=== PATIENT | male | born 1985 | race Caucasian/White ===

== ENCOUNTER 2022-02-11 15:04 | Emergency (ER) | payer BC ==
[2022-02-11 15:58] LABS: #Basophils 0.1 thou/uL (0.0-0.2); #Lymphocytes 2.1 thou/uL (1.20-3.40); #Monocytes 0.7 thou/uL (0.11-0.59); #Neutrophils 4.2 thou/uL (1.40-6.50); %Eosinophils 0.6 % (0.0-10.0); %Lymphocytes 29.9 % (21.0-51.0); %Monocytes 9.6 % (0.0-10.0); %Neutrophils 58.9 % (42.0-75.0); Hemoglobin 15.3 g/dL (14.0-18.0); Mean Corpuscular HGB CONC 31.5 g/dL (32.0-36.0); Mean Corpuscular Hemoglobin 28.5 pg (27.0-31.0); Mean Corpuscular Volume 90.5 fL (78.0-98.0); Mean Platelet Volume 8.1 fL (7.4-10.4); Platelet Count 299 thou/uL (130-400); Red Blood Cell (RBC) Count 5.37 mill/uL (4.70-6.10); White Blood Cell (WBC) Count 7.1 thou/uL (4.8-10.8)
[2022-02-11 16:12] LABS: ALT (SGPT) 22 U/L (8-55); AST (SGOT) 19 U/L (5-34); Albumin 4.7 g/dL (3.5-5.0); Alkaline Phosphatase 61 U/L (40-110); Anion Gap 16 mmol/L (10-20); BUN (Urea Nitrogen) 17 mg/dL (8.9-20.6); Bilirubin, Total 0.6 mg/dL (0.2-1.2); CK (CPK) 123 U/L (30-200); Calc. Creatinine Clearance 0 mL/min (70-130); Calcium 9.6 mg/dL (7.8-10.44); Carbon Dioxide 24 mmol/L (22-29); Chloride 106 mmol/L (98-107); Globulin 2.3 g/dL (2.4-3.5); Glucose 85 mg/dL (70-105); Sodium 142 mmol/L (136-145)
== END 2022-02-11 17:03 | disposition home or self-care (01) ==
LOC: NAV ERS 15:04
DX: R53.83 Other fatigue (principal); K21.9 Gastro-esophageal reflux disease without esophagitis; Z79.899 Other long term (current) drug therapy
CPT/HCPCS: 71046; 80053; 82550; 84443; 84484; 85025; 93005

== ENCOUNTER 2022-05-28 21:52 | Emergency (ER) | payer BC | END 2022-05-28 22:34 | disposition home or self-care (01) | LOC: NAV ERS 21:52 | DX: S10.93XA Contusion of unspecified part of neck, initial encounter (principal); X58.XXXA Exposure to other specified factors, initial encounter | CPT/HCPCS: 99283 ==

== ENCOUNTER 2022-08-21 04:32 | Emergency (ER) | payer BC ==
[2022-08-21] MEDS ORDERED: Acetaminophen 500 MG TAB ONE (04:51)
[2022-08-21] MEDS ORDERED: Benzonatate 100 MG CAP ONE (05:31)
== END 2022-08-21 05:40 | disposition home or self-care (01) ==
LOC: NAV ERS 04:32
DX: U07.1 COVID-19 (principal)
CPT/HCPCS: 87804; U0003; U0005

== ENCOUNTER 2024-05-29 21:34 | Emergency (ER) | payer BC | END 2024-05-29 22:25 | disposition home or self-care (01) | LOC: NAV ERS 21:34 | DX: L30.1 Dyshidrosis [pompholyx] (principal) | CPT/HCPCS: 99283 ==